=== PATIENT | male | born 1960 | race African-American/Black ===

== ENCOUNTER 2017-02-14 15:21 | Emergency (ER) | payer BC, OTHER ==
[~2017-02-14] VITALS: Ht 188 cm; Wt 108.9 kg
[2017-02-14 15:25] VITALS: BP 132/77
--- NOTE | 2017-02-14 16:21 | Emergency Room Report ---
History of Present Illness General Chief Complaint: Skin Rash/Abscess Source: Patient Present Illness HPI 56-year-old male presents to the emergency department complaining of itchy rash to the right arm x2 weeks. Patient states his symptoms began in between the webbing of his fingers and has progressed up the wrist onto the forearm. Patient denies fevers, chills, recent travel or ill contacts. Patient denies persons at home with similar symptoms. Denies pain. Denies lesions/rashes elsewhere on the body. Denies new medications or body washes or creams. Denies swelling of the lips, tongue , throat or airway. Denies wheezing, or shortness of breath. Denies recent travel, recent illness or ill contacts. denies blisters, oral lesions, or sloughing of the skin. Denies CP, Palpitations, LOC, AMS, dizziness, Changes in Vision, Sensation, paresthesias, or a sudden severe headache. Allergies: Coded Allergies: No Known Allergies (Verified Allergy, Unknown, 03/18/10) Patient History Past Medical History: see triage record Past Surgical History: none Pertinent Family History: none Immunizations: UTD Reviewed Nursing Documentation: PMH: Agreed, PSxH: Agreed Nursing Documentation-PMH Past Medical History: No History, Except For Hx Diabetes: Yes Review of Systems All Other Systems: negative except mentioned in HPI Physical Exam Vital Signs Date Time Temp Pulse Resp B/P (MAP) Pulse Ox O2 Delivery O2 Flow Rate FiO2 02/14/17 15:25 97.8 80 18 132/77 97 Room Air Sp02 EP Interpretation: reviewed, normal General Appearance: no apparent distress, alert, GCS 15, non-toxic Head: normocephalic, atraumatic Eyes: bilateral eye normal inspection, bilateral eye PERRL ENT: hearing grossly normal, normal pharynx, no angioedema, normal voice, other - No swelling of the lips or tongue. No stridor. No evidence of airway obstruction. Neck: full range of motion, supple/symm/no masses Respiratory: lungs clear, normal breath sounds, no wheezing, speaking full sentences Cardiovascular #1: regular rate, rhythm Musculoskeletal: back normal, gait/station normal, normal range of motion Neurologic: alert, oriented x3, responsive, motor strength/tone normal, sensory intact, normal gait, speech normal Skin: normal color, warm/dry, well hydrated, rash - no evidence of secondary infection at this time. no blisters, no vesicles. multiple small 1mm papules with excoriations noted to the volar right wrist and up into the right forearm in a somewhat linear fashion. Lymphatic: no adenopathy Medical Decision Making PA Attestation Dr. Lira is my supervising Physician whom patient management has been discussed with. Diagnostic Impression: Primary Impression: Dermatitis ER Course 56-year-old male presents to the emergency department complaining of itchy rash to the right arm x2 weeks. Patient states his symptoms began in between the webbing of his fingers and has progressed up the wrist onto the forearm. Patient denies fevers, chills, recent travel or ill contacts. Patient denies persons at home with similar symptoms. Denies pain. Denies lesions/rashes elsewhere on the body. Denies new medications or body washes or creams. Denies swelling of the lips, tongue , throat or airway. Denies wheezing, or shortness of breath. Denies recent travel, recent illness or ill contacts. denies blisters, oral lesions, or sloughing of the skin. Denies CP, Palpitations, LOC, AMS, dizziness, Changes in Vision, Sensation, paresthesias, or a sudden severe headache. Ddx considered but are not limited to cellulitis, scabies, shingles, varicella, dermatitis, urticaria, eczema, tinea, viral exanthem, SJS Vital signs: are WNL, pt. is afebrile H&PE are most consistent with localized dermatitis. suspicious for scabies due to location of onset and migration of rash. no evidence of secondary infection at this time. no blisters, no vesicles. multiple small 1mm papules with excoriations noted to the volar right wrist and up into the right forearm in a somewhat linear fashion. ORDERS: none required at this time, the diagnosis is clinical ED INTERVENTIONS: None required at this time. DISCHARGE: At this time pt. is stable for d/c to home. Will provide printed patient care instructions, and any necessary prescriptions. Care plan and follow up instructions have been discussed with the patient prior to discharge. Last Vital Signs Date Time Temp Pulse Resp B/P (MAP) Pulse Ox O2 Delivery O2 Flow Rate FiO2 02/14/17 15:26 97.7 80 18 137/77 96 Room Air Disposition: HOME, SELF-CARE Condition: Stable Scripts Permethrin* (ELIMITE*) 60 Gm Cream..g. 1 APPLIC TOPIC ONCE, #60 GM 0 Refills Apply cream from head to toe; leave on for 8-14 hours before washing off with water; may reapply in 1 week if live mites appear. Prov: Shanique Sparks 02/14/17 Hydroxyzine Hcl (HYDROXYZINE HCL) 25 Mg Tablet 25 MG PO Q6HR, #20 TAB Prov: Shanique Sparks 02/14/17 Hydrocortisone (Hydrocortisone Cream 2.5%) Y Cream.appl 1 APPLIC TP BID, #28.3 GM Prov: Shanique Sparks 02/14/17 Referrals: [facility],REFERRING (PCP) Patient Instructions: Rash Additional Instructions: Take medications as directed. Follow up with a Primary Care Provider in 3-5 days, even if your symptoms have resolved. --Please review list of primary care clinics, if you do not already have a primary care provider Return sooner to ED if new symptoms occur, or current symptoms become worse. Do not drink alcohol, drive, or operate heavy machinery while taking hydroxyzine /ATARAX as this may cause drowsiness. - Please note that this Emergency Department Report was dictated using [employer] technology software, occasionally this can lead to erroneous entry secondary to interpretation by the dictation equipment. Shanique Sparks Feb 14, 2017 16:21
[2017-02-14] MEDS ORDERED: HYDROXYZINE HCL25 M1 PO (16:22)
[2017-02-14] MEDS ORDERED: HYDROCORTISONE30 G2 TP (16:22)
[2017-02-14] MEDS ORDERED: PERMETHRIN60 GM TOPIC (16:22)
[2017-02-14 16:39] VITALS: BP 137/77
== END 2017-02-14 16:39 | disposition home or self-care (01) ==
LOC: EMR 15:54
DX: L30.9 Dermatitis, unspecified (principal); E11.9 Type 2 diabetes mellitus without complications
CPT/HCPCS: 82962; 99283

== ENCOUNTER 2017-07-19 23:39 | Emergency (ER) | payer OTHER ==
[~2017-07-19] VITALS: Ht 188 cm; Wt 111.1 kg
[~2017-07-19 23:39] MED LIST: HYDROCORTISONE30 G2 TP; HYDROXYZINE HCL25 M1 PO; PERMETHRIN60 GM TOPIC
[2017-07-19] MEDS ORDERED: METFORMIN HCL500 M1 ORAL (23:50)
[2017-07-20] MEDS ORDERED: HYDROCORTISONE30 G2 TP (00:26)
[2017-07-20] MEDS ORDERED: IBUPROFEN600 MG ORAL (00:26)
[2017-07-20] MEDS ORDERED: METFORMIN HCL500 M1 ORAL (00:26)
--- NOTE | 2017-07-20 00:27 | Emergency Room Report ---
History of Present Illness General Chief Complaint: Upper Extremity Injury Source: Patient Present Illness HPI Is a 57-year-old male who has a history diabetes high blood pressure. He said is out of his medication. He presents with chief complaint of right wrist pain. His been ongoing for last week. No trauma. He said he noticed a bump over the area. No fever chills but no nausea no vomiting. Denies any other complaint. Said that he refill on his metformin. He also complaining a rash to his upper extremity. He said that last time he was here he receive an ointment that helped tremendously. Allergies: Coded Allergies: No Known Allergies (Verified Allergy, Unknown, 03/18/10) Patient History Past Medical History: see triage record, old chart reviewed, DM, HTN Past Surgical History: none Pertinent Family History: none Social History: Denies: smoking Immunizations: other Reviewed Nursing Documentation: PMH: Agreed; PSxH: Agreed Nursing Documentation-PMH Hx Diabetes: Yes Review of Systems Eye: Denies: eye pain, blurred vision ENT: Denies: ear pain, nose congestion, throat swelling Respiratory: Denies: cough, shortness of breath Cardiovascular: Denies: chest pain, palpitations Gastrointestinal: Denies: abdominal pain, diarrhea, nausea, vomiting Musculoskeletal: Reports: joint pain; Denies: back pain Skin: Denies: rash Neurological: Denies: headache, numbness Endocrine: Denies: increased thirst, increased urine Hematologic/Lymphatic: Denies: easy bruising All Other Systems: negative except mentioned in HPI Physical Exam Vital Signs Date Time Temp Pulse Resp B/P (MAP) Pulse Ox O2 Delivery O2 Flow Rate FiO2 07/19/17 23:44 98.2 75 18 96/60 98 Room Air 98.2 Sp02 EP Interpretation: reviewed, normal General Appearance: well appearing, no apparent distress, alert Head: normocephalic, atraumatic Eyes: bilateral eye PERRL, bilateral eye EOMI ENT: hearing grossly normal, normal pharynx Neck: full range of motion, supple, no meningismus Respiratory: chest non-tender, lungs clear, normal breath sounds Cardiovascular #1: regular rate, rhythm, no murmur Gastrointestinal: normal bowel sounds, non tender, no mass, no organomegaly, no bruit, non-distended Musculoskeletal: back normal, gait/station normal, normal range of motion, other - Right wrist: Tenderness over the distal radius. His bump appear to be the bone. No redness or warmth. Full range of motion. Sensation normal. The rat she describing appear to be more of a dermatitis from scratching. No evidence of cellulitis. No necrotizing fasciitis. Neurologic: alert, oriented x3 Psychiatric: mood/affect normal Skin: warm/dry Medical Decision Making Diagnostic Impression: Primary Impression: Wrist pain, acute Qualified Codes: M25.531 - Pain in right wrist Additional Impressions: Dermatitis Medication refill ER Course His patient presents with nonspecific wrist pain. No evidence of septic joint or gout. No evidence of infection. Rash is probably from dry skin. No evidence of infection either. No evidence of scabies. We'll discharge home. Last Vital Signs Date Time Temp Pulse Resp B/P (MAP) Pulse Ox O2 Delivery O2 Flow Rate FiO2 07/19/17 23:44 98.2 75 18 96/60 98 Room Air 98.2 Status: improved Disposition: HOME, SELF-CARE Condition: Stable Scripts Metformin Hcl* (METFORMIN HCL*) 500 Mg Tablet 500 MG ORAL TWICE A DAY, #60 TAB Prov: DEANGELO CHEN M.D. 07/20/17 Hydrocortisone (Hydrocortisone Cream 2.5%) Y Cream.appl 1 APPLIC TP BID, #30 GM Prov: DEANGELO CHEN M.D. 07/20/17 Ibuprofen* (MOTRIN*) 600 Mg Tablet 600 MG ORAL THREE TIMES A DAY, #30 TAB 0 Refills Prov: DEANGELO CHEN M.D. 07/20/17 Additional Instructions: Follow-up with your doctor in 7 days. Return if symptom worsen. DEANGELO CHEN M.D. July 20, 2017 00:26
[2017-07-20 00:43] VITALS: BP 137/88
== END 2017-07-20 00:46 | disposition home or self-care (01) ==
LOC: EMR 07-20 00:38
DX: M25.531 Pain in right wrist (principal); L30.9 Dermatitis, unspecified; Z76.0 Encounter for issue of repeat prescription; E11.9 Type 2 diabetes mellitus without complications
CPT/HCPCS: 82962; 99284

== ENCOUNTER 2019-03-29 12:37 | Inpatient (IN) | payer OTHER ==
[~2019-03-29] VITALS: Ht 175.3 cm; Wt 77.1 kg
[~2019-03-29 12:37] MED LIST changes: +IBUPROFEN600 MG ORAL; +METFORMIN HCL500 M1 ORAL
--- NOTE | 2019-03-29 12:40 | NUR ---
ED Nurse Note: Pt brought in by ambulance d/t syncopal episode and fall on the street. Pt states he felt weak and "passed out." Pt states that he has a "bump" on his head from the fall with bleeding. Respirations even and unlabored on room air. Heart rate elevated @ 120. All other vital signs stable as documented. Pt denies pain at ths time. Pt states he "don't feel right."
[2019-03-29 12:45] VITALS: BP 135/79
--- NOTE | 2019-03-29 13:13 | NUR ---
ED Nurse Note: pt taken to CT by tech.
--- NOTE | 2019-03-29 13:31 | NUR ---
ED Nurse Note: back from ct
--- NOTE | 2019-03-29 13:53 | Diagnostic Imaging Report ---
Indications: Syncopal episode and fall on the street, soft tissue trauma to the head with bleeding Technique: Spiral acquisitions obtained through the brain. Angled axial and coronal 5 x 5 mm slices were reconstructed. Total dose length product 1457 mGycm. CTDI vol(s) 62 mGy. Dose reduction achieved using automated exposure control Comparison: None. Findings: No acute intracranial hemorrhage or edema. No mass effect nor midline shift. Normal aceves-white differentiation. Normal size ventricles and extra axial CSF spaces. The mastoids are clear. The calvarium is intact. Visualized orbits and sinuses are unremarkable. Impression: Negative The CT scanner at [facility] is accredited by the [employer] and the scans are performed using protocols designed to limit radiation exposure to as low as reasonably achievable to attain images of sufficient resolution adequate for diagnostic evaluation.
--- NOTE | 2019-03-29 13:54 | Diagnostic Imaging Report ---
. Indication: Cough Technique: One view of the chest Comparison: 06/08/2011 Findings: Lungs and pleural spaces are clear. Heart size is normal. No significant change Impression: No acute process
--- NOTE | 2019-03-29 14:05 | Emergency Room Report ---
History of Present Illness General Chief Complaint: Syncope Source: Patient (Estefany Evans DO) Present Illness HPI Patient presents with complaints of syncopal episode Patient reports that over the past several days he has been feeling generally weak and malaised questionable low-grade fevers patient was walking earlier today when he started feeling lightheaded And dizzy as he tried to sit down he had a full lapse of consciousness with syncopal episode hitting the back of his head denies any chest pain he does feel nauseated denies any focal weakness denies any neck pain or neuropathy Denies any recent travel patient reports that he is a diabetic (ClaytonmaruEstefany BERRY) Allergies: Coded Allergies: No Known Allergies (Verified , 03/18/10) Patient History Past Medical History: see triage record Reviewed Nursing Documentation: PMH: Agreed; PSxH: Agreed (ClaytonEstefany mahoney ) Nursing Documentation-PMH Hx Hypertension: Yes Hx Diabetes: Yes (Estefany Evans DO) Review of Systems All Other Systems: negative except mentioned in HPI (ClaytonEstefany stevenson DO) Physical Exam Vital Signs Date Time Temp Pulse Resp B/P (MAP) Pulse Ox O2 Delivery O2 Flow Rate FiO2 03/29/19 12:25 97.3 76 18 135/79 (97) 98 Room Air Sp02 EP Interpretation: reviewed, normal General Appearance: no apparent distress Head: other - Abrasion occipital region of the scalp no obvious laceration small associated hematoma Eyes: bilateral eye PERRL, bilateral eye EOMI ENT: hearing grossly normal, dry mucus membranes Neck: supple Respiratory: lungs clear, no rhonchi, no respiratory distress Cardiovascular #1: tachycardia Gastrointestinal: non tender, soft Genitourinary: no CVA tenderness Musculoskeletal: other - Generally weak however moving all extremities without focal deficit Neurologic: alert, oriented x3, sensory intact Psychiatric: normal inspection Skin: no rash Lymphatic: no adenopathy (ClaytonmaruEstefany DO) Medical Decision Making Diagnostic Impression: Primary Impression: Syncope ER Course Patient is a fairly complex patient with multiple differential to consideration including but not limited to cardiac cardiopulmonary and vascular emergencies Patient had blood work initiated Admitted for further inpatient care Labs Test 03/29/19 13:45 03/29/19 13:46 03/29/19 15:00 03/30/19 05:20 Urine Osmolality 769 mOsm/kg (429-449) Urine Random Sodium 58 mmol/L (20-110) Hemoglobin A1c 6.6 % (4.3-6.0) 6.4 % (4.3-6.0) White Blood Count 6.4 K/UL (4.8-10.8) 4.5 K/UL (4.8-10.8) Red Blood Count 4.19 M/UL (4.70-6.10) 3.57 M/UL (4.70-6.10) Hemoglobin 13.7 G/DL (14.2-18.0) 11.9 G/DL (14.2-18.0) Hematocrit 40.0 % (42.0-52.0) 34.1 % (42.0-52.0) Mean Corpuscular Volume 95 FL (80-99) 96 FL (80-99) Mean Corpuscular Hemoglobin 32.8 PG (27.0-31.0) 33.3 PG (27.0-31.0) Mean Corpuscular Hemoglobin Concent 34.4 G/DL (32.0-36.0) 34.9 G/DL (32.0-36.0) Red Cell Distribution Width 11.5 % (11.6-14.8) 11.4 % (11.6-14.8) Platelet Count 169 K/UL (150-450) 155 K/UL (150-450) Mean Platelet Volume 7.7 FL (6.5-10.1) 7.7 FL (6.5-10.1) Neutrophils (%) (Auto) 73.4 % (45.0-75.0) 45.8 % (45.0-75.0) Lymphocytes (%) (Auto) 11.6 % (20.0-45.0) 35.2 % (20.0-45.0) Monocytes (%) (Auto) 12.5 % (1.0-10.0) 17.2 % (1.0-10.0) Eosinophils (%) (Auto) 0.0 % (0.0-3.0) 0.5 % (0.0-3.0) Basophils (%) (Auto) 2.5 % (0.0-2.0) 1.4 % (0.0-2.0) Prothrombin Time 10.7 SEC (9.30-11.50) Prothromb Time International Ratio 1.0 (0.9-1.1) Activated Partial Thromboplast Time 27 SEC (23-33) Urine Color Yellow Urine Appearance Slightly cloudy Urine pH 6.5 (4.5-8.0) Urine Specific [place] 1.030 (1.005-1.035) Urine Protein 3+ (NEGATIVE) Urine Glucose (UA) 1+ (NEGATIVE) Urine Ketones 3+ (NEGATIVE) Urine Blood 2+ (NEGATIVE) Urine Nitrite Negative (NEGATIVE) Urine Bilirubin Negative (NEGATIVE) Urine Urobilinogen 4 MG/DL (0.0-1.0) Urine Leukocyte Esterase Negative (NEGATIVE) Urine RBC 0-2 /HPF (0 - 0) Urine WBC 2-4 /HPF (0 - 0) Urine Squamous Epithelial Cells None /LPF (NONE/OCC) Urine Bacteria Few /HPF (NONE) Sodium Level 136 MMOL/L (136-145) 137 MMOL/L (136-145) Potassium Level 4.0 MMOL/L (3.5-5.1) 3.4 MMOL/L (3.5-5.1) Chloride Level 99 MMOL/L (98-107) 104 MMOL/L (98-107) Carbon Dioxide Level 25 MMOL/L (21-32) 25 MMOL/L (21-32) Anion Gap 12 mmol/L (5-15) 8 mmol/L (5-15) Blood Urea Nitrogen 20 mg/dL (7-18) 17 mg/dL (7-18) Creatinine 1.4 MG/DL (0.55-1.30) 1.1 MG/DL (0.55-1.30) Estimat Glomerular Filtration Rate > 60 mL/min (>60) > 60 mL/min (>60) Glucose Level 173 MG/DL (74-106) 171 MG/DL (74-106) Lactic Acid Level 1.50 mmol/L (0.4-2.0) Calcium Level 8.7 MG/DL (8.5-10.1) 7.7 MG/DL (8.5-10.1) Total Bilirubin 0.4 MG/DL (0.2-1.0) 0.3 MG/DL (0.2-1.0) Aspartate Amino Transf (AST/SGOT) 49 U/L (15-37) 46 U/L (15-37) Alanine Aminotransferase (ALT/SGPT) 45 U/L (12-78) 36 U/L (12-78) Alkaline Phosphatase 64 U/L (46-116) 50 U/L (46-116) Total Creatine Kinase 506 U/L (26-308) 535 U/L (26-308) Creatine Kinase MB 0.6 NG/ML (0.0-3.6) Creatine Kinase MB Relative Index 0.1 Troponin I 0.000 ng/mL (0.000-0.056) Pro-B-Type Natriuretic Peptide 76 pg/mL (0-125) Total Protein 7.7 G/DL (6.4-8.2) 6.6 G/DL (6.4-8.2) Albumin 3.5 G/DL (3.4-5.0) 2.9 G/DL (3.4-5.0) Globulin 4.2 g/dL 3.7 g/dL Albumin/Globulin Ratio 0.8 (1.0-2.7) 0.8 (1.0-2.7) Lipase 95 U/L (73-393) Urine Opiates Screen Negative (NEGATIVE) Urine Barbiturates Screen Negative (NEGATIVE) Phencyclidine (PCP) Screen Negative (NEGATIVE) Urine Amphetamines Screen Negative (NEGATIVE) Urine Benzodiazepines Screen Negative (NEGATIVE) Urine Cocaine Screen Negative (NEGATIVE) Urine Marijuana (THC) Screen Negative (NEGATIVE) Urine Eosinophils None seen (NONE SEEN) Uric Acid 6.0 MG/DL (2.6-7.2) Triglycerides Level 51 MG/DL (30-150) Cholesterol Level 84 MG/DL (< 200) LDL Cholesterol 38 mg/dL (<100) HDL Cholesterol 36 MG/DL (40-60) Cholesterol/HDL Ratio 2.3 (3.3-4.4) Thyroid Stimulating Hormone (TSH) 1.747 uiU/mL (0.358-3.740) (Estefany Evans DO) Rhythm Strip Diag. Results EP Interpretation: yes Rate: 90 Rhythm: NSR, no PVC's, no ectopy (Estefany Evans DO) Chest X-Ray Diagnostic Results Chest X-Ray Diagnostic Results : Chest X-Ray Ordered: Yes # of Views/Limited/Complete: 1 View Indication: Chest Pain EP Interpretation: Yes Interpretation: no consolidation, no effusion, no pneumothorax Impression: No acute disease Electronically Signed by: Estefany Evans DO (Estefany Evans DO) CT/MRI/US Diagnostic Results CT/MRI/US Diagnostic Results : Impression CT head no acute disease (Estefany Evans DO) Last Vital Signs Date Time Temp Pulse Resp B/P (MAP) Pulse Ox O2 Delivery O2 Flow Rate FiO2 03/29/19 12:45 97.3 120 18 135/79 98 Room Air Status: improved (Estefany Evans DO) Reevaluation Time: 14:59 Reevaluation Impression Assumed care of the patient approximately 2:30 PM from previous provider Briefly, this is a 58-year-old male history of diabetes who has not been feeling well for several days, not eating, feeling weak. Syncopal episode at home with head injury. CT scan of the head does not show intracranial injury. At the time of signout we are waiting labs which have now resulted. Troponin negative, CBC, chemistry, tox screen within normal limits. No evidence of DKA. Patient was tachycardic but responding to fluids. He will be admitted to telemetry for further work-up of syncope. Admitted to panel physician. (Sylvester Lind MD) Disposition: ADMITTED INPATIENT Condition: Serious Estefany Evans DO Mar 29, 2019 14:05 Sylvester Lind MD Mar 29, 2019 15:00
[2019-03-29] MEDS ORDERED: Ipratropium 0.02% Inh Soln 2.5ml UD HHN ONE (14:15)
[2019-03-29] MEDS ORDERED: Albuterol ud Inhalation HHN ONE (14:15)
[2019-03-29 14:25] LABS: APPEARANCE,URINE SLIGHTLY CLOUDY; BASOPHILS % (AUTO) 2.5 % (0.0-2.0); BILIRUBIN, URINE NEGATIVE (NEGATIVE); HEMOGLOBIN 13.7 G/DL (14.2-18.0); KETONES,URINE 3+ (NEGATIVE); LEUKOCYTE ESTERASE ,URINE NEGATIVE (NEGATIVE); LYMPHOCYTES % (AUTO) 11.6 % (20.0-45.0); MEAN CORPUSCULAR VOLUME 95 FL (80-99); MONOCYTES % (AUTO) 12.5 % (1.0-10.0); NEUTROPHILS % (AUTO) 73.4 % (45.0-75.0); NITRITE,URINE NEGATIVE (NEGATIVE); PH,URINE 6.5 (4.5-8.0); PLATELET COUNT 169 K/UL (150-450); PROTEIN,URINE 3+ (NEGATIVE); RED BLOOD COUNT 4.19 M/UL (4.70-6.10); RED CELL DISTRIBUTION WIDTH 11.5 % (11.6-14.8); UROBILINOGEN,URINE 4 MG/DL (0.0-1.0); WHITE BLOOD COUNT 6.4 K/UL (4.8-10.8)
[2019-03-29 14:36] LABS: ANION GAP 12 mmol/L (5-15); BLOOD UREA NITROGEN 20 mg/dL (7-18); CALCIUM 8.7 MG/DL (8.5-10.1); CARBON DIOXIDE 25 MMOL/L (21-32); CHLORIDE 99 MMOL/L (98-107); CREATININE 1.4 MG/DL (0.55-1.30); SODIUM 136 MMOL/L (136-145)
[2019-03-29 14:49] LABS: ALANINE AMINOTRANSFERASE 45 U/L (12-78); ALBUMIN 3.5 G/DL (3.4-5.0); ALBUMIN/GLOBULIN RATIO 0.8 (1.0-2.7); ALKALINE PHOSPHATASE 64 U/L (46-116); ASPARTATE AMINO TRANSFERASE 49 U/L (15-37); BILIRUBIN,TOTAL 0.4 MG/DL (0.2-1.0); CKMB 0.6 NG/ML (0.0-3.6); CREATINE KINASE 506 U/L (26-308)
[2019-03-29 15:10] LABS: GLUCOSE, URINE (UA) 1+ (NEGATIVE)
[2019-03-29 15:20] VITALS: BP 132/82
[2019-03-29 15:25] LABS: COLOR,URINE YELLOW
[2019-03-29] MEDS ORDERED: Albuterol/Ipratropium 3ml neb HHN PRN (15:30)
[2019-03-29] MEDS ORDERED: Miralax 17gm pkt ORAL PRN (15:30)
--- NOTE | 2019-03-29 16:05 | NUR ---
ED Nurse Note: Pt now c/o of new sternal chest pain and left arm pain. ED MD aware.
[2019-03-29 17:26] VITALS: BP 135/78
--- NOTE | 2019-03-29 17:35 | NUR ---
ED Nurse Note: Report given to Neal on 2E. Pt on the phone with son at the nurse's station
--- NOTE | 2019-03-29 17:50 | NUR ---
ED Nurse Note: Pt transferred safely to 2E without incident.
--- NOTE | 2019-03-29 20:00 | NUR ---
HAND-OFF: Report given to Kacie Lindsey RN. Patient sitting up in bed, awake and alert, watching television, on room air, c/o pain in bilateral chest and left elbow, medications ordered to treat, bed in lowest position, call light within reach, in no apparent distress.
--- NOTE | 2019-03-29 20:01 | NUR ---
HAND-OFF: Report given to Stefan DALE. Patient sitting up in bed, awake and alert, watching television, on room air, c/o pain in bilateral chest and left elbow, dry cough, painful, bed in lowest position, bed alarm on, call light within reach,will continue to monitor
--- NOTE | 2019-03-29 20:02 | NUR ---
NURSE NOTES: Report received from Stefan DALE. pt is new admission. Patient sitting up in bed, awake and alert, watching television, on room air, c/o pain in bilateral chest and left elbow, dry cough, painful, bed in lowest position, bed alarm on, call light within reach,will continue to monitor
[2019-03-29] MEDS: NovoLOG Insulin Flexpen SUBQ SCH (21:00)
[2019-03-29] MEDS: HYDROcodone/Acetamin 5/325 tab ORAL PRN (21:00)
[2019-03-29] MEDS: Heparin 5000 units/ml inj SUBQ SCH (21:17)
[2019-03-29] MEDS: Promethazine/Codeine 5ml UD ORAL PRN (22:26)
[2019-03-29 23:14] LABS: CREATINE KINASE 535 U/L (26-308)
[2019-03-30] MEDS: HYDROcodone/Acetamin 5/325 tab ORAL PRN ×2 (02:38→09:28)
[2019-03-30] MEDS: Promethazine/Codeine 5ml UD ORAL PRN ×4 (05:43→22:01)
[2019-03-30] MEDS: NovoLOG Insulin Flexpen SUBQ SCH ×4 (05:49→21:00)
[2019-03-30 06:59] LABS: BASOPHILS % (AUTO) 1.4 % (0.0-2.0); EOSINOPHILS % (AUTO) 0.5 % (0.0-3.0); HEMATOCRIT 34.1 % (42.0-52.0); HEMOGLOBIN 11.9 G/DL (14.2-18.0); LYMPHOCYTES % (AUTO) 35.2 % (20.0-45.0); MEAN CORPUSCULAR VOLUME 96 FL (80-99); MONOCYTES % (AUTO) 17.2 % (1.0-10.0); NEUTROPHILS % (AUTO) 45.8 % (45.0-75.0); PLATELET COUNT 155 K/UL (150-450); RED BLOOD COUNT 3.57 M/UL (4.70-6.10); RED CELL DISTRIBUTION WIDTH 11.4 % (11.6-14.8); WHITE BLOOD COUNT 4.5 K/UL (4.8-10.8)
[2019-03-30 07:17] LABS: ALANINE AMINOTRANSFERASE 36 U/L (12-78); ALBUMIN 2.9 G/DL (3.4-5.0); ALBUMIN/GLOBULIN RATIO 0.8 (1.0-2.7); ALKALINE PHOSPHATASE 50 U/L (46-116); ANION GAP 8 mmol/L (5-15); ASPARTATE AMINO TRANSFERASE 46 U/L (15-37); BILIRUBIN,TOTAL 0.3 MG/DL (0.2-1.0); BLOOD UREA NITROGEN 17 mg/dL (7-18); CALCIUM 7.7 MG/DL (8.5-10.1); CARBON DIOXIDE 25 MMOL/L (21-32); CHLORIDE 104 MMOL/L (98-107); CHOLESTEROL 84 MG/DL (< 200); CREATININE 1.1 MG/DL (0.55-1.30); HDL CHOLESTEROL 36 MG/DL (40-60); POTASSIUM 3.4 MMOL/L (3.5-5.1); SODIUM 137 MMOL/L (136-145); TRIGLYCERIDES 51 MG/DL (30-150)
--- NOTE | 2019-03-30 07:24 | NUR ---
HAND-OFF: Report given to SUYAPA Gonzalez.
--- NOTE | 2019-03-30 07:53 | NUR ---
NURSE NOTES: Received report from SUYAPA Hester. Pt in bed, awake, talkative, continuing to c/o dizziness and blurred vision, pt states he has chest tightness with continuing cough, cough medications given at 0543, RN discussed plan or care, urinal at bedside, instructed pt to call for assistance and not get oob without help due to dizziness and blurred vision, pt is a/o x3-4, discussed with neon molder possible need to move pt's room closer to station or needs due to current condidt Addendum: 03/30/19 at 0801 by LOGAN CARPIO RN continuing previous note: due to current condition, bed in lowest position, call light within reach, bed alarm on
[2019-03-30 08:00] VITALS: BP 127/72
[2019-03-30] MEDS: Nitroglycerin Subl 0.4mg tab SL PRN ×3 (09:07→09:20)
[2019-03-30] MEDS: Heparin 5000 units/ml inj SUBQ SCH ×2 (09:14→21:00)
--- NOTE | 2019-03-30 09:20 | NUR ---
NURSE NOTES: PT c/o 11/07 "chest tightness and pain" RN administered nitroglycerin 0.4mg SL 3x Q5M. Pt states after 3 doses no change in pain level. RN administered [place] 5/325 for continuing pain level
--- NOTE | 2019-03-30 10:34 | Diagnostic Imaging Report ---
Indication:Elevated Bun and Creatinine. Technique: Grayscale and duplex Doppler imaging of the kidneys performed. Comparison: None Findings: The size, contour, and echogenicity of both kidneys are within normal limits. There is no hydronephrosis.. The right kidney measures 11.2 cm. in length. The left kidney measures 11.2 cm. in length. 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 The IVC is patent. Urinary bladder is unremarkable. IMPRESSION: Negative ultrasound the kidneys. Duplicated collecting system
--- NOTE | 2019-03-30 11:06 | NUR ---
NURSE NOTES: Notified Dr. Kemar Magaña is 3.4
--- NOTE | 2019-03-30 11:54 | Consultation ---
History of Present Illness General Date patient seen: Mar 30, 2019 Chief Complaint: Syncope Present Illness HPI 58 year old male with hx of DM, brought in by paramedics after a syncopal episode. Pt was having flu-like symptoms for one week and was not feeling well. He was not able to eat and apparently passed out. Allergies: Coded Allergies: No Known Allergies (Verified , 03/18/10) Medication History Scheduled Hydrocortisone (Hydrocortisone Cream 2.5%), 1 APPLIC TP BID Metformin Hcl* (Metformin Hcl*), 500 MG ORAL TWICE A DAY Patient History Healthcare decision maker Resuscitation status Full Code Advanced Directive on File Review of Systems All Other Systems: negative except mentioned in HPI Physical Exam General Appearance: WD/WN Lines, tubes and drains: peripheral, central line HEENT: normocephalic, anicteric Neck: non-tender, normal alignment Respiratory/Chest: chest wall non-tender, normal breath sounds Cardiovascular/Chest: normal rate Last 24 Hour Vital Signs Date Time Temp Pulse Resp B/P (MAP) Pulse Ox O2 Delivery O2 Flow Rate FiO2 03/30/19 09:58 97.5 03/30/19 09:20 127/72 03/30/19 09:15 127/72 03/30/19 09:07 127/72 03/30/19 09:00 Room Air 03/30/19 08:23 99 03/30/19 08:00 97.5 64 19 127/72 (90) 98 03/30/19 04:00 63 03/30/19 00:00 63 03/29/19 21:00 Room Air 03/29/19 20:00 71 03/29/19 19:42 98.2 94 22 129/81 98 Room Air 21 03/29/19 18:18 Room Air 03/29/19 17:26 98.0 89 22 135/78 98 Room Air 21 03/29/19 15:20 101 22 132/82 96 Room Air 21 03/29/19 14:20 74 22 96 Room Air 21 96 22 95 03/29/19 12:45 97.3 120 18 135/79 98 Room Air 03/29/19 12:25 97.3 76 18 135/79 (97) 98 Room Air Intake and Output 03/29/19 03/30/19 18:59 06:59 Intake Total 100 ml Balance 100 ml Intake Oral 100 ml # Voids 2 Laboratory Tests Test 03/29/19 13:45 03/29/19 13:46 03/29/19 15:00 03/30/19 05:20 Urine Osmolality 769 mOsm/kg (429-449) H Urine Random Creatinine Pending Urine Random Microalbumin Pending Urine Random Sodium 58 mmol/L (20-110) Urine Microalbumin/Creatinine Ratio Pending Hemoglobin A1c 6.6 % (4.3-6.0) H 6.4 % (4.3-6.0) H White Blood Count 6.4 K/UL (4.8-10.8) 4.5 K/UL (4.8-10.8) L Red Blood Count 4.19 M/UL (4.70-6.10) L 3.57 M/UL (4.70-6.10) L Hemoglobin 13.7 G/DL (14.2-18.0) L 11.9 G/DL (14.2-18.0) L Hematocrit 40.0 % (42.0-52.0) L 34.1 % (42.0-52.0) L Mean Corpuscular Volume 95 FL (80-99) 96 FL (80-99) Mean Corpuscular Hemoglobin 32.8 PG (27.0-31.0) H 33.3 PG (27.0-31.0) H Mean Corpuscular Hemoglobin Concent 34.4 G/DL (32.0-36.0) 34.9 G/DL (32.0-36.0) Red Cell Distribution Width 11.5 % (11.6-14.8) L 11.4 % (11.6-14.8) L Platelet Count 169 K/UL (150-450) 155 K/UL (150-450) Mean Platelet Volume 7.7 FL (6.5-10.1) 7.7 FL (6.5-10.1) Neutrophils (%) (Auto) 73.4 % (45.0-75.0) 45.8 % (45.0-75.0) Lymphocytes (%) (Auto) 11.6 % (20.0-45.0) L 35.2 % (20.0-45.0) Monocytes (%) (Auto) 12.5 % (1.0-10.0) H 17.2 % (1.0-10.0) H Eosinophils (%) (Auto) 0.0 % (0.0-3.0) 0.5 % (0.0-3.0) Basophils (%) (Auto) 2.5 % (0.0-2.0) H 1.4 % (0.0-2.0) Prothrombin Time 10.7 SEC (9.30-11.50) Prothromb Time International Ratio 1.0 (0.9-1.1) Activated Partial Thromboplast Time 27 SEC (23-33) Urine Color Yellow Urine Appearance Slightly cloudy Urine pH 6.5 (4.5-8.0) Urine Specific [place] 1.030 (1.005-1.035) Urine Protein 3+ (NEGATIVE) H Urine Glucose (UA) 1+ (NEGATIVE) H Urine Ketones 3+ (NEGATIVE) H Urine Blood 2+ (NEGATIVE) H Urine Nitrite Negative (NEGATIVE) Urine Bilirubin Negative (NEGATIVE) Urine Urobilinogen 4 MG/DL (0.0-1.0) H Urine Leukocyte Esterase Negative (NEGATIVE) Urine RBC 0-2 /HPF (0 - 0) H Urine WBC 2-4 /HPF (0 - 0) Urine Squamous Epithelial Cells None /LPF (NONE/OCC) Urine Bacteria Few /HPF (NONE) Sodium Level 136 MMOL/L (136-145) 137 MMOL/L (136-145) Potassium Level 4.0 MMOL/L (3.5-5.1) 3.4 MMOL/L (3.5-5.1) L Chloride Level 99 MMOL/L (98-107) 104 MMOL/L (98-107) Carbon Dioxide Level 25 MMOL/L (21-32) 25 MMOL/L (21-32) Anion Gap 12 mmol/L (5-15) 8 mmol/L (5-15) Blood Urea Nitrogen 20 mg/dL (7-18) H 17 mg/dL (7-18) Creatinine 1.4 MG/DL (0.55-1.30) H 1.1 MG/DL (0.55-1.30) Estimat Glomerular Filtration Rate > 60 mL/min (>60) > 60 mL/min (>60) Glucose Level 173 MG/DL (74-106) H 171 MG/DL (74-106) H Lactic Acid Level 1.50 mmol/L (0.4-2.0) Calcium Level 8.7 MG/DL (8.5-10.1) 7.7 MG/DL (8.5-10.1) L Total Bilirubin 0.4 MG/DL (0.2-1.0) 0.3 MG/DL (0.2-1.0) Aspartate Amino Transf (AST/SGOT) 49 U/L (15-37) H 46 U/L (15-37) H Alanine Aminotransferase (ALT/SGPT) 45 U/L (12-78) 36 U/L (12-78) Alkaline Phosphatase 64 U/L (46-116) 50 U/L (46-116) Total Creatine Kinase 506 U/L (26-308) H 535 U/L (26-308) H Creatine Kinase MB 0.6 NG/ML (0.0-3.6) Creatine Kinase MB Relative Index 0.1 Troponin I 0.000 ng/mL (0.000-0.056) Pro-B-Type Natriuretic Peptide 76 pg/mL (0-125) Total Protein 7.7 G/DL (6.4-8.2) 6.6 G/DL (6.4-8.2) Albumin 3.5 G/DL (3.4-5.0) 2.9 G/DL (3.4-5.0) L Globulin 4.2 g/dL 3.7 g/dL Albumin/Globulin Ratio 0.8 (1.0-2.7) L 0.8 (1.0-2.7) L Lipase 95 U/L (73-393) Urine Opiates Screen Negative (NEGATIVE) Urine Barbiturates Screen Negative (NEGATIVE) Phencyclidine (PCP) Screen Negative (NEGATIVE) Urine Amphetamines Screen Negative (NEGATIVE) Urine Benzodiazepines Screen Negative (NEGATIVE) Urine Cocaine Screen Negative (NEGATIVE) Urine Marijuana (THC) Screen Negative (NEGATIVE) Urine Eosinophils None seen (NONE SEEN) Uric Acid 6.0 MG/DL (2.6-7.2) Triglycerides Level 51 MG/DL (30-150) Cholesterol Level 84 MG/DL (< 200) LDL Cholesterol 38 mg/dL (<100) HDL Cholesterol 36 MG/DL (40-60) L Cholesterol/HDL Ratio 2.3 (3.3-4.4) L Thyroid Stimulating Hormone (TSH) 1.747 uiU/mL (0.358-3.740) Microbiology Date/Time Source Procedure Growth Status 03/29/19 13:46 Nasal Nares - Final Complete 03/29/19 13:46 Nasal Nares - Final Complete Height (Feet): 5 Height (Inches): 9.00 Weight (Pounds): 170 Medications Current Medications Medications (Trade) Dose Ordered Sig/Mary Route PRN Reason Start Time Stop Time Status Last Admin Dose Admin Acetaminophen (Tylenol) 650 mg Q4H PRN ORAL fever 03/29/19 15:30 04/28/19 15:29 03/29/19 22:27 Acetaminophen/ Hydrocodone Bitart ([place] 5/325) 1 tab Q6H PRN ORAL For Pain 03/29/19 19:00 04/05/19 18:59 03/30/19 09:28 Albuterol/ Ipratropium (Albuterol/ Ipratropium) 3 ml Q4H PRN HHN Shortness of Breath 03/29/19 15:30 04/03/19 15:29 Clonidine HCl (Catapres Tab) 0.1 mg Q4H PRN ORAL sbp more than 160 03/29/19 15:30 04/28/19 15:29 Dextrose (Dextrose 50%) 25 ml Q30M PRN IV Hypoglycemia 03/29/19 15:30 04/28/19 15:29 Dextrose (Dextrose 50%) 50 ml Q30M PRN IV Hypoglycemia 03/29/19 15:30 04/28/19 15:29 Heparin Sodium (Porcine) (Heparin 5000 units/ml) 5,000 units EVERY 12 HOURS SUBQ 03/29/19 21:00 04/28/19 20:59 03/30/19 09:14 Insulin Aspart (NovoLOG) BEFORE MEALS AND HS SUBQ 03/29/19 21:00 04/28/19 20:59 Nitroglycerin (Ntg) 0.4 mg Q5M X 3 DOSES PRN SL Prn Chest Pain 03/29/19 15:30 04/28/19 15:29 03/30/19 09:20 Ondansetron HCl (Zofran) 4 mg Q6H PRN IVP Nausea & Vomiting 03/29/19 15:30 04/28/19 15:29 Ondansetron HCl (Zofran) 4 mg Q6H PRN IVP Nausea & Vomiting 03/29/19 19:00 04/28/19 18:59 Polyethylene Glycol (Miralax) 17 gm HSPRN PRN ORAL Constipation 03/29/19 15:30 04/28/19 15:29 Potassium Chloride (K-Dur) 40 meq ONCE ORAL 03/30/19 11:30 03/30/19 12:30 Promethazine HCl/ Codeine (Phenergan with Codeine) 5 ml Q6H PRN ORAL For Cough 03/29/19 19:00 04/28/19 18:59 03/30/19 05:43 Sodium Chloride 1,000 ml @ 100 mls/hr Q10H IVLG 03/29/19 18:30 04/28/19 18:29 03/30/19 04:30 Temazepam (Restoril) 15 mg HSPRN PRN ORAL Insomnia 03/29/19 15:30 04/05/19 15:29 03/30/19 02:37 Assessment/Plan Problem List: (1) Syncope ICD Codes: R55 - Syncope and collapse SNOMED: 764508231 (2) Acute bronchitis ICD Codes: J20.9 - Acute bronchitis, unspecified SNOMED: 25546583 (3) Diabetes mellitus ICD Codes: E11.9 - Type 2 diabetes mellitus without complications SNOMED: 89050550 Assessment/Plan: echo, doppler of carotid artery check sputum, iv abx respiratory treatment Curly Crawford MD Mar 30, 2019 11:54
[2019-03-30 12:00] VITALS: BP 118/75
[2019-03-30] MEDS ORDERED: HYDROcodone/Acetamin 5/325 tab ORAL PRN (12:30)
--- NOTE | 2019-03-30 15:49 | History & Physical ---
History and Physical History & Physicial Colton Reinoso MD Mar 30, 2019 15:49
[2019-03-30 16:00] VITALS: BP 121/68
--- NOTE | 2019-03-30 16:14 | NUR ---
CASE MANAGEMENT: INITIAL 58 Y/O MALE FROM [address] [facility] CC: NOT FEELING WELL, FLU-LIKE SYMPTOMS, HEADACHE AND RIGHT ELBOW PAIN SI:SYNCOPE 97.3 120 18 135/79 98% RA BUN 20 CREAT 1.4 GLU 173 AST 49 TOT CK 506 UA CX~ PROTEIN +3 GLUCOSE +1 BLOOD +2 KETONES +3 OSMOLALITY 769 IS:NS 2.3L X1 NEB TX ~~~~TELEMETRY STATUS 2 EAST
--- NOTE | 2019-03-30 17:40 | Consultation ---
History of Present Illness General Date patient seen: Mar 30, 2019 Chief Complaint: Syncope Present Illness HPI 58 y/o M with hx of Dm2, HTN presented to ED on 03/29 after a syncopal episode. Patient was having flu-like symptoms(low grade fevers, general malaise) for 1 week and not feeling well. Patient got dizzy as he tried to sit down and passed out hitting the back of his head. +nausea. +cough for 2 weeks, Denied chest pain, recent travel, neck pain, focal weakness. Allergies: Coded Allergies: No Known Allergies (Verified , 03/18/10) Medication History Scheduled Hydrocortisone (Hydrocortisone Cream 2.5%), 1 APPLIC TP BID Metformin Hcl* (Metformin Hcl*), 500 MG ORAL TWICE A DAY Patient History Healthcare decision maker Resuscitation status Full Code Advanced Directive on File Patient History Narrative Pmhx: as above Shx: reviewed Fhx: non contributory Physical Exam Physical Exam Narrative General Appearance: WD/WN Lines, tubes and drains: peripheral, central line HEENT: normocephalic, anicteric Neck: non-tender, normal alignment Respiratory/Chest: chest wall non-tender, normal breath sounds Cardiovascular/Chest: normal rate Last 24 Hour Vital Signs Date Time Temp Pulse Resp B/P (MAP) Pulse Ox O2 Delivery O2 Flow Rate FiO2 03/30/19 16:00 97.9 63 18 121/68 (85) 100 03/30/19 12:00 97.7 68 20 118/75 (89) 98 03/30/19 11:39 57 03/30/19 09:58 97.5 03/30/19 09:20 127/72 03/30/19 09:15 127/72 03/30/19 09:07 127/72 03/30/19 09:00 Room Air 03/30/19 08:23 99 03/30/19 08:00 97.5 64 19 127/72 (90) 98 03/30/19 04:00 63 03/30/19 00:00 63 03/29/19 21:00 Room Air 03/29/19 20:00 71 03/29/19 19:42 98.2 94 22 129/81 98 Room Air 21 03/29/19 18:18 Room Air Intake and Output 03/29/19 03/30/19 19:00 07:00 Intake Total 100 ml Balance 100 ml Intake Oral 100 ml # Voids 2 Laboratory Tests Test 03/30/19 05:20 White Blood Count 4.5 K/UL (4.8-10.8) L Red Blood Count 3.57 M/UL (4.70-6.10) L Hemoglobin 11.9 G/DL (14.2-18.0) L Hematocrit 34.1 % (42.0-52.0) L Mean Corpuscular Volume 96 FL (80-99) Mean Corpuscular Hemoglobin 33.3 PG (27.0-31.0) H Mean Corpuscular Hemoglobin Concent 34.9 G/DL (32.0-36.0) Red Cell Distribution Width 11.4 % (11.6-14.8) L Platelet Count 155 K/UL (150-450) Mean Platelet Volume 7.7 FL (6.5-10.1) Neutrophils (%) (Auto) 45.8 % (45.0-75.0) Lymphocytes (%) (Auto) 35.2 % (20.0-45.0) Monocytes (%) (Auto) 17.2 % (1.0-10.0) H Eosinophils (%) (Auto) 0.5 % (0.0-3.0) Basophils (%) (Auto) 1.4 % (0.0-2.0) Sodium Level 137 MMOL/L (136-145) Potassium Level 3.4 MMOL/L (3.5-5.1) L Chloride Level 104 MMOL/L (98-107) Carbon Dioxide Level 25 MMOL/L (21-32) Anion Gap 8 mmol/L (5-15) Blood Urea Nitrogen 17 mg/dL (7-18) Creatinine 1.1 MG/DL (0.55-1.30) Estimat Glomerular Filtration Rate > 60 mL/min (>60) Glucose Level 171 MG/DL (74-106) H Hemoglobin A1c 6.4 % (4.3-6.0) H Calcium Level 7.7 MG/DL (8.5-10.1) L Total Bilirubin 0.3 MG/DL (0.2-1.0) Aspartate Amino Transf (AST/SGOT) 46 U/L (15-37) H Alanine Aminotransferase (ALT/SGPT) 36 U/L (12-78) Alkaline Phosphatase 50 U/L (46-116) Total Protein 6.6 G/DL (6.4-8.2) Albumin 2.9 G/DL (3.4-5.0) L Globulin 3.7 g/dL Albumin/Globulin Ratio 0.8 (1.0-2.7) L Triglycerides Level 51 MG/DL (30-150) Cholesterol Level 84 MG/DL (< 200) LDL Cholesterol 38 mg/dL (<100) HDL Cholesterol 36 MG/DL (40-60) L Cholesterol/HDL Ratio 2.3 (3.3-4.4) L Thyroid Stimulating Hormone (TSH) 1.747 uiU/mL (0.358-3.740) Height (Feet): 5 Height (Inches): 9.00 Weight (Pounds): 170 Medications Current Medications Medications (Trade) Dose Ordered Sig/Mary Route PRN Reason Start Time Stop Time Status Last Admin Dose Admin Acetaminophen (Tylenol) 650 mg Q4H PRN ORAL fever 03/29/19 15:30 04/28/19 15:29 03/29/19 22:27 Acetaminophen/ Hydrocodone Bitart ([place] 5/325) 1 tab Q6H PRN ORAL For Pain 03/30/19 12:30 04/05/19 18:59 Albuterol/ Ipratropium (Albuterol/ Ipratropium) 3 ml Q4H PRN HHN Shortness of Breath 03/29/19 15:30 04/03/19 15:29 Clonidine HCl (Catapres Tab) 0.1 mg Q4H PRN ORAL sbp more than 160 03/29/19 15:30 04/28/19 15:29 Dextrose (Dextrose 50%) 25 ml Q30M PRN IV Hypoglycemia 03/29/19 15:30 04/28/19 15:29 Dextrose (Dextrose 50%) 50 ml Q30M PRN IV Hypoglycemia 03/29/19 15:30 04/28/19 15:29 Heparin Sodium (Porcine) (Heparin 5000 units/ml) 5,000 units EVERY 12 HOURS SUBQ 03/29/19 21:00 04/28/19 20:59 03/30/19 09:14 Insulin Aspart (NovoLOG) BEFORE MEALS AND HS SUBQ 03/29/19 21:00 04/28/19 20:59 Levofloxacin 100 ml @ 100 mls/hr DAILY IVPB 03/30/19 14:00 04/06/19 13:59 03/30/19 14:00 Nitroglycerin (Ntg) 0.4 mg Q5M X 3 DOSES PRN SL Prn Chest Pain 03/29/19 15:30 04/28/19 15:29 03/30/19 09:20 Ondansetron HCl (Zofran) 4 mg Q6H PRN IVP Nausea & Vomiting 03/29/19 15:30 04/28/19 15:29 Promethazine HCl/ Codeine (Phenergan with Codeine) 5 ml Q4H PRN ORAL For Cough 03/30/19 15:50 04/28/19 15:49 03/30/19 16:37 Temazepam (Restoril) 15 mg HSPRN PRN ORAL Insomnia 03/30/19 12:30 04/05/19 15:29 Assessment/Plan Assessment/Plan: Abx: levaquin 03/30- Assessment: Syncopal episode- likely from dehydration -CT head: no acute findings Afebrile No leukocytosis Flu-like symptoms Acute bronchitis -influenza sc neg TOYIN, improving -Renal US: Negative ultrasound the kidneys. Duplicated collecting system Dm2 HTN Plan: -Continue Levaquin #1/5 -f/u cx -Monitor CBC/CMP, temperatures Thank you for this consultation. Will continue to follow along with you. Discussed with Magda Gomez M.D. Mar 30, 2019 17:40
--- NOTE | 2019-03-30 19:19 | NUR ---
HAND-OFF: Report given to SUYAPA Almaraz.
--- NOTE | 2019-03-30 19:20 | NUR ---
NURSE NOTES: Got report from Lisa DALE. Pt in stable condition. Denies any pain. No s/s of distress or discomfort noted. Pt resting in bed comfortably. Bed in low and locked position, call light within reach, bedside table within reach. Continue to monitor.
[2019-03-30 20:00] VITALS: BP 139/76
--- NOTE | 2019-03-30 20:30 | History and Physical Report ---
DATE OF ADMISSION: 03/29/2019 CHIEF COMPLAINT: Weakness, fatigue, syncope. HISTORY OF PRESENT ILLNESS: This is a 58-year-old gentleman with past medical history significant for hypertension, diabetes type 2, who presented to the emergency department after had a syncopal episode. The patient had flu-like symptoms for a week, not feeling well, with unsteady gait, was not able to tolerate oral intake, passed out, and subsequently was brought into the emergency room. Shortly after initial evaluation in emergency, the patient was admitted to the hospital with syncope episode, possible due to the acute bronchitis and volume depletion. PAST MEDICAL HISTORY/PAST SURGICAL HISTORY: As above history of diabetes type 2. MEDICATIONS AT HOME: Metformin 500 mg twice a day. ALLERGIES: No known drug allergies. SOCIAL HISTORY: The patient quit smoking about 2 weeks ago. He has been smoking on and off for many years. Denies any alcohol or substance abuse. FAMILY HISTORY: Noncontributory. REVIEW OF SYSTEMS: Mostly as above. Denies any dysuria, frequency, or hematuria. Denies any hemoptysis or hematochezia. Complained of weakness, fatigue, and cough. PHYSICAL EXAMINATION: VITAL SIGNS: On admission from the emergency room, temperature 97.3, pulse of 76, respirations 18, blood pressure 135/79. GENERAL: The patient is awake and responsive, in no acute distress. HEAD AND NECK: Pupils are equal and reactive to light. Extraocular movements intact. Neck was supple. No JVD. LUNGS: Good air entry. No wheezing or rales. HEART: S1, S2. Regular rate and rhythm. No gallops. ABDOMEN: Soft, nondistended, and nontender. Positive bowel sounds. EXTREMITIES: No cyanosis, clubbing, or edema NEUROLOGIC: Cranial nerves II through XII grossly normal. Motor 5/5 in all extremities. Gait is intact. RECTAL/GENITOURINARY: Refused and deferred. PSYCHIATRIC: Mood and affect is intact. LABORATORY DATA: On admission WBC of 6.4, hemoglobin 13, hematocrit 40, platelets is 169. Sodium 136, potassium 4.0, chloride 99, bicarbonate 25, BUN 20, creatinine 1.4, and glucose is 173. Lactic acid is 1.5. Total CK is 506. Troponin 0.00. Albumin is 3.5. TSH is 95. Urine drug screen is negative. Urinalysis shows +3 protein, +1 glucose, +3 ketones. PT of 10, INR 1.0, PTT of 27. The patient's CT of the head negative. Chest x-ray, no acute process. ASSESSMENT: 1. Syncope, most likely secondary to hypovolemia and dehydration. 2. Acute kidney injury, most likely secondary to the dehydration. 3. Diabetes type 2. 4. Bronchitis. PLAN: Admit the patient to monitored unit. We will follow up laboratory and cultures. Follow up with aggressive hydration. Code status is Full Code. DVT prophylaxis, heparin subcutaneous. Broad-spectrum antibiotic with Levaquin. We will follow up with the laboratory in the morning. Dr. Crawford consultation from [facility]. Colton Reinoso M.D. DR: JESSI JOB#: [id number] CC:
[2019-03-31] VITALS: BP 128/72
[2019-03-31 04:00] VITALS: BP 133/61
[2019-03-31] MEDS: NovoLOG Insulin Flexpen SUBQ SCH ×2 (06:30→11:30)
--- NOTE | 2019-03-31 07:20 | NUR ---
HAND-OFF: Report given to Villa BARRIOS.
[2019-03-31 08:00] VITALS: BP 111/64
[2019-03-31] MEDS: Heparin 5000 units/ml inj SUBQ SCH (09:02)
--- NOTE | 2019-03-31 10:50 | NUR ---
NURSE NOTES: pt has removed his iv and tele monitor for the second time. once upon rn initial round, then 2nd just now. pt stating "im not dizzy now, but i have diarrhea" rn did not witness any diarrhea pt also states "I will wait for the doctor and my lunch before i sign out but im aware if i sign out I wont get the taxi voucher or anything" pt ambulates as tolerated. walks to the nursing station to look for rn. at this time, patient is in bed, waiting for md. call light within reach. bed in lowest position, locked. Addendum: 03/31/19 at 1059 by JORDAN STUBBS RN dr Crawford made aware of above. Addendum: 03/31/19 at 1100 by JORDAN STUBBS RN left message for dr Yvette bright, await for orders.
--- NOTE | 2019-03-31 11:34 | Infectious Diseases Prog Note ---
Assessment/Plan Assessment/Plan Abx: levaquin 03/30- Assessment: Syncopal episode- likely from dehydration -CT head: no acute findings Afebrile No leukocytosis Flu-like symptoms Acute bronchitis -influenza sc neg TOYIN, improving -Renal US: Negative ultrasound the kidneys. Duplicated collecting system Dm2 HTN Plan: -Continue Levaquin #2/5 -f/u cx -Monitor CBC/CMP, temperatures Thank you for this consultation. Will continue to follow along with you. Discussed with RN Subjective Allergies: Coded Allergies: No Known Allergies (Verified , 03/18/10) Subjective afebrile no leukocytosis at RA Objective Vital Signs Last 24 Hour Vital Signs Date Time Temp Pulse Resp B/P (MAP) Pulse Ox O2 Delivery O2 Flow Rate FiO2 03/31/19 08:09 59 03/31/19 08:00 97.7 56 18 111/64 (80) 96 03/31/19 05:04 82 20 99 Room Air 21 03/31/19 05:00 97.0 03/31/19 04:00 97.7 65 18 133/61 (85) 96 03/31/19 04:00 74 03/31/19 00:00 97.0 63 20 128/72 (90) 98 03/31/19 00:00 84 03/30/19 21:00 Room Air 03/30/19 20:00 98.9 69 18 139/76 (97) 98 03/30/19 16:09 62 03/30/19 16:00 97.9 63 18 121/68 (85) 100 03/30/19 12:00 97.7 68 20 118/75 (89) 98 03/30/19 11:39 57 Height (Feet): 5 Height (Inches): 9.00 Weight (Pounds): 170 Objective General Appearance: WD/WN Lines, tubes and drains: peripheral, central line HEENT: normocephalic, anicteric Neck: non-tender, normal alignment Respiratory/Chest: chest wall non-tender, normal breath sounds Cardiovascular/Chest: normal rate Microbiology Date/Time Source Procedure Growth Status 03/29/19 13:40 Blood Blood Culture - Preliminary NO GROWTH AFTER 24 HOURS Resulted 03/29/19 13:31 Blood Blood Culture - Preliminary NO GROWTH AFTER 24 HOURS Resulted 03/29/19 13:46 Nasal Nares - Final Complete 03/29/19 13:46 Nasal Nares - Final Complete Current Medications Medications (Trade) Dose Ordered Sig/Mary Route PRN Reason Start Time Stop Time Status Last Admin Dose Admin Acetaminophen (Tylenol) 650 mg Q4H PRN ORAL fever 03/29/19 15:30 04/28/19 15:29 03/31/19 04:30 Acetaminophen/ Hydrocodone Bitart ([place] 5/325) 1 tab Q6H PRN ORAL For Pain 03/30/19 12:30 04/05/19 18:59 Albuterol/ Ipratropium (Albuterol/ Ipratropium) 3 ml Q4H PRN HHN Shortness of Breath 03/29/19 15:30 04/03/19 15:29 Clonidine HCl (Catapres Tab) 0.1 mg Q4H PRN ORAL sbp more than 160 03/29/19 15:30 04/28/19 15:29 Dextrose (Dextrose 50%) 25 ml Q30M PRN IV Hypoglycemia 03/29/19 15:30 04/28/19 15:29 Dextrose (Dextrose 50%) 50 ml Q30M PRN IV Hypoglycemia 03/29/19 15:30 04/28/19 15:29 Heparin Sodium (Porcine) (Heparin 5000 units/ml) 5,000 units EVERY 12 HOURS SUBQ 03/29/19 21:00 04/28/19 20:59 03/31/19 09:02 Insulin Aspart (NovoLOG) BEFORE MEALS AND HS SUBQ 03/29/19 21:00 04/28/19 20:59 Levofloxacin 100 ml @ 100 mls/hr DAILY IVPB 03/30/19 14:00 04/06/19 13:59 03/31/19 09:00 Nitroglycerin (Ntg) 0.4 mg Q5M X 3 DOSES PRN SL Prn Chest Pain 03/29/19 15:30 04/28/19 15:29 03/30/19 09:20 Ondansetron HCl (Zofran) 4 mg Q6H PRN IVP Nausea & Vomiting 03/29/19 15:30 04/28/19 15:29 Potassium Chloride (K-Dur) 40 meq ONCE ORAL 03/31/19 11:15 03/31/19 13:00 Promethazine HCl/ Codeine (Phenergan with Codeine) 5 ml Q4H PRN ORAL For Cough 03/30/19 15:50 04/28/19 15:49 03/30/19 22:01 Temazepam (Restoril) 15 mg HSPRN PRN ORAL Insomnia 03/30/19 12:30 04/05/19 15:29 03/30/19 22:01 Magda Turk M.D. Mar 31, 2019 11:34
[2019-03-31 12:00] VITALS: BP 106/52
[2019-03-31] MEDS ORDERED: Tubing IV Secondary IV ONE (13:02)
[2019-03-31] MEDS ORDERED: NS 275ml ONE (13:02)
--- NOTE | 2019-03-31 13:11 | NUR ---
NURSE NOTES: pt left in stable condition, pt self removed iv on left forearm 22g, no bleeding. pt has all belongings. pt signed ama. dr Crawford aware of ama. arm band removed. pt states he feels much better and cant wait anymore for the md to do their rounds
--- NOTE | 2019-03-31 21:45 | Consultation ---
DATE OF CONSULTATION: 03/31/2019 ENDOCRINOLOGY CONSULTATION CONSULTING PHYSICIAN: Yvan Goel M.D. REFERRING PHYSICIAN: Colton Reinoso M.D. REASON FOR CONSULTATION: Diabetes management. HISTORY OF PRESENT ILLNESS: The patient is a 58-year-old male with past medical history of diabetes, hypertension, who presented to the emergency department after a syncopal episode. The patient had flu-like symptoms for a week, had an unsteady gait, not able to tolerate orals, passed out, and then he was brought into the emergency department. The patient was admitted to the hospital for IV hydration. Glucose was elevated, therefore Endocrinology was consulted. PAST MEDICAL HISTORY: 1. Diabetes type 2. 2. Hypertension. PAST SURGICAL HISTORY: None. MEDICATIONS: Metformin 500 mg b.i.d. ALLERGIES TO MEDICATIONS: None. SOCIAL HISTORY: Quit smoking about 2 weeks ago. Still smoking off and on for many years. No alcohol or drug use. FAMILY HISTORY: Noncontributory. REVIEW OF SYSTEMS: A 12-point review of systems was performed and the pertinent positives and negatives are mentioned in the history of present illness. PHYSICAL EXAMINATION: GENERAL: Awake and alert. VITAL SIGNS: Blood pressure is 130/80, pulse of 80, temperature 98.2, respiratory rate of 18. HEENT: Pupils are equal and reactive to light. Sclerae are anicteric. NECK: No JVD. No thyromegaly. No bruits. LUNGS: Clear. HEART: Regular rate and rhythm. ABDOMEN: Positive bowel sounds. EXTREMITIES: No clubbing, cyanosis, or edema. LABORATORY VALUES: WBC 4, hemoglobin 11, hematocrit 34, platelets of 155. Sodium 137, potassium 3.4, chloride 104, bicarb 25, BUN 23, creatinine 1.1, glucose of 171 with an A1c of 6.4. TSH of 1.7. DIAGNOSES: 1. Diabetes, out of control. 2. Acute kidney injury. 3. Syncope. 4. Viral illness. PLAN: 1. Hold metformin for now until the patient become more hydrated. 2. Glucose monitoring. 3. Novolog coverage 4. Hopefully by tomorrow, we will resume the metformin. Thank you, Dr. Reinoso, for the courtesy of this consultation. Yvan Goel M.D. DR: JYOTI JOB#: [id number] CC: ANTHONY
--- NOTE | 2019-04-02 10:05 | Discharge Summary ---
Discharge Summary Discharge Summary _ DATE OF ADMISSION: 03/29/2019 DATE OF DISCHARGE: 03/31/2019 Patient left AGAINST MEDICAL ADVICE REASON FOR ADMISSION: 58 years old male with past medical history of diabetes mellitus type 2, hypertension, presented to emergency department after syncopal episode. Patient apparently had flulike symptoms for a week and was not feeling well He reported unsteady gait and was not able to tolerate oral intake. He passed out and subsequently was brought to emergency department for further evaluation and management. Shortly after initial evaluation patient was admitted to the hospital with syncopal episode possible due to acute bronchitis and volume depletion. Pertinent labs revealed BUN 20, creatinine 1.4. Glucose 173. Lactic acid 1.5. Troponin negative. No leukocytosis hemoglobin 13.7, hematocrit 40.0. Urine toxicology screen was negative. Urinalysis revealed +3 protein, +1 glucose, +3 ketones, but no evidence of urinary tract infection. CT of the head revealed no acute intracranial pathology. Chest x-ray demonstrated no acute cardiopulmonary pathology. Patient subsequently admitted to monitored floor for further evaluation and management. CONSULTANTS: pulmonary Dr. Crawford ID specialist Dr. Turk [employer] Dep[employer] Clerk Dr. Goel [facility]SE: Patient admitted to telemetry floor and started on IV hydration and empiric antibiotics. DVT prophylaxis provided. Supplemental oxygen provided to keep pulse oximetry above 90%. Bronchodilator treatment via HHN provided as needed. Influenza screen test was negative. Blood cultures were negative. Patient remained afebrile, no leukocytosis. Renal parameters and electrolytes were closely monitored, electrolytes corrected as needed, and nephrotoxic's were avoided. With IV hydration , creatinine from 1.4 down to 1.1. Blood sugar was managed with sliding scale of insulin. Metformin was on hold due to acute kidney injury. Hemoglobin A1c- 6.4 at goal. Lipid panel was stable. TSH within normal limits. On 03/31 patient decided to sign AGAINST MEDICAL ADVICE. The risks and consequences of signing AGAINST MEDICAL ADVICE were discussed with patient in detail. Patient verbalized understanding, nevertheless signed AMA form and left. FINAL DIAGNOSES: Syncope , most likely secondary to hypovolemia and dehydration Acute kidney injury most likely secondary to dehydration-resolved Diabetes mellitus type 2 Acute bronchitis Flulike symptoms Hypertension I have been assigned to dictate discharge summary for this account. I was not involved in the patient's management. Lindy Motley NP Apr 02, 2019 10:05
--- NOTE | 2019-04-06 09:54 | NUR ---
*-* INSURANCE *-* ALL CLINICALS HAVE BEEN FAXED TO: [facility] NYE:ARACELI REF# [id number] P: [phone] F: [phone] F: [phone]
== END 2019-03-31 13:03 | disposition left against medical advice (07) | DRG 641 ==
LOC: EDBD 12:37 → EMR 13:05 → 2E 14:50 → EDBEDREQ 17:11
DX: E86.0 Dehydration (principal); N17.9 Acute kidney failure, unspecified; E86.1 Hypovolemia; R55 Syncope and collapse; J20.9 Acute bronchitis, unspecified; Z87.891 Personal history of nicotine dependence; E11.65 Type 2 diabetes mellitus with hyperglycemia; Z79.84 Long term (current) use of oral hypoglycemic drugs
CPT/HCPCS: 36415; 70450; 71045; 76770; 80053; 80061; 80307; 81003; 82043; 82550; 82553; 82962; 83036; 83605; 83690; 83880; 83935; 84300; 84443; 84484; 84550; 85025; 85610; 85730; 86710; 87040; 89050; 93005; 94664; 96360; 99285; J1815; J7030; J8499